=== PATIENT | female | born 1955 | race Caucasian/White ===

== ENCOUNTER → 2020-12-24 | Day surgery (SDC) | payer OTHER, MEDICARE ==
[~2020-12-24] VITALS: Ht 162.6 cm; Wt 79.0 kg
[~2020-12-24] MED LIST: ACID CONTROLLER20 MG PO; ALLOPURINOL100 MG PO; BENADRYL25 MG PO; CINNAMON500 MG PO; CLARITIN10 MG PO; FLONASE ALLER15.8 ML; LISINOPRIL 10MG10 MG PO; METFORMIN HCL500 MG PO; MOTRIN600 MG PO; SINGULAIR10 MG PO; SYNTHROID25 MCG PO; TIZANIDINE HCL6 MG PO; VIT D3 PO
== END | disposition home or self-care (01) ==
LOC: FAS 11:49
DX: M24.612 Ankylosis, left shoulder (principal); K21.9 Gastro-esophageal reflux disease without esophagitis; E11.9 Type 2 diabetes mellitus without complications; J45.909 Unspecified asthma, uncomplicated; G47.30 Sleep apnea, unspecified; I10 Essential (primary) hypertension; Z79.84 Long term (current) use of oral hypoglycemic drugs; Z79.899 Other long term (current) drug therapy; Z88.0 Allergy status to penicillin; Z88.5 Allergy status to narcotic agent; Z88.8 Allergy status to other drugs, medicaments and biological substances; Z91.041 Radiographic dye allergy status; Z98.1 Arthrodesis status
CPT/HCPCS: 93005; 97161; 97530-GP; J1100; J2250; J2405; J2704; J2795; J7120